=== PATIENT | male | born 1950 | race Caucasian/White ===

== ENCOUNTER → 2017-08-25 | Outpatient (CLI) | payer BC ==
[2017-08-25 14:53] LABS: HCT 41.2 % (39.0-53.0); HGB 14.1 gm/dL (13.0-17.5); MCH 33.3 pg (25.0-35.0); MCHC 34.1 g/dL (31.0-37.0); MCV 97.6 fL (80.0-100.0); Mean Platelet Volume 8.4; Platelet Count 183 k/uL (150-450); RBC 4.22 m/uL (4.30-5.90); RDW 13.1 % (11.5-15.5); WBC 9.5 k/uL (3.8-10.6)
[2017-08-25 15:04] LABS: Anion Gap 13 mmol/L; Blood Urea Nitrogen 15 mg/dL (9-20); Carbon Dioxide 25 mmol/L (22-30); Chloride 106 mmol/L (98-107); Potassium 4.7 mmol/L (3.5-5.1); Sodium 144 mmol/L (137-145)
== END | disposition home or self-care (01) ==
LOC: LABPAT 14:27
PROVIDERS: ATTEND Internal Medicine Interventional Cardiology
DX: Z01.812 Encounter for preprocedural laboratory examination (principal); I42.0 Dilated cardiomyopathy
CPT/HCPCS: 36415; 80051; 82565; 84520; 85027

== ENCOUNTER 2017-09-02 09:17 | Day surgery (SDC) | payer BC ==
[2017-08-28 09:09] VITALS: BMI 31.4
[~2017-09-02 09:17] MED LIST: ALPRAZolam 0.25 MG TAB PO PRN; ALPRAZolam 0.5 MG TAB PO PRN; ASPIRIN 325 MG TAB PO STA; ATORVASTATIN 80 MG TAB PO STA; NITROGLYCERIN SL TABS 0.4 MG TAB SUBLINGUAL PRN; SODIUM CHLORIDE 0.9% 1,000 ML in EMPTY BAG 1 BAG IV ONE
[2017-09-02 09:44] LABS: Glucose,Whole Blood 259 mg/dL (75-99)
[2017-09-02] MEDS ORDERED: INSULIN ASPART 100 UNIT/ML 1 ML 10 ML VIAL SQ SCH (09:45)
[2017-09-02 09:49] VITALS: RESP 16; TEMP 98.3
[2017-09-02] MEDS ORDERED: VERAPAMIL 2.5 MG/ML 2 ML AMP ONE (11:24)
[2017-09-02] MEDS ORDERED: MIDAZOLAM 2 MG/2 ML VIAL ONE (11:24)
[2017-09-02] MEDS ORDERED: diphenhydrAMINE 50 MG/ML 1 ML VIAL ONE (11:30)
[2017-09-02] MEDS ORDERED: diphenhydrAMINE 50 MG/ML 1 ML VIAL IVP ONE (11:39)
[2017-09-02] MEDS ORDERED: MIDAZOLAM 2 MG/2 ML VIAL IVP ONE ×2 (11:39)
[2017-09-02] MEDS ORDERED: LIDOCAINE 2% INJ 20 MG/ML SQ ONE ×2 (11:40→11:50)
[2017-09-02] MEDS: VERAPAMIL SYRINGE (5 MG/10 ML) INTRAARTER ONE ×2 (11:43→12:08)
[2017-09-02] MEDS ORDERED: HEPARIN SODIUM 1,000 UN/ML (10ML VL) IV ONE (11:44)
[2017-09-02] MEDS ORDERED: IOHEXOL 350 MG/ML (PER ML) 100ML BTL INJ ONE (12:07)
[2017-09-02 12:45] LABS: Glucose,Whole Blood 169 mg/dL (75-99)
--- NOTE | 2017-09-02 12:52 | CC ---
CARDIAC CATHETERIZATION REPORT DATE OF SERVICE: 09/02/2017. PROCEDURE: Left heart catheterization and coronary angiography. PERFORMED BY: Dr. Niecy Wright. Moderate conscious sedation time 31 minutes with a combination of Benadryl and Versed. Patient's oxygen saturation was monitored closely as well as his vital signs and rhythm. CLINICAL INFORMATION: Mr. Sukhjinder Ward is a 66-year-old gentleman with a history of nonischemic cardiomyopathy, who also has developed type 2 diabetes, hypertension, hyperlipidemia, had a recent stress test that revealed apical ischemia, also adjoining inferior wall as well. In view of abnormal stress test, diabetes, and significant risk factors, he was advised coronary angiography. Risks, benefits, options were discussed with the patient and . They understood all details and wished to proceed. PROCEDURE NOTE: Under local anesthesia and strict aseptic precautions, a 6-Indonesian introducer was placed in the right radial artery. Because of extreme tortuosity and bovine arch, I was unable to get access into the ascending aorta. I therefore switched over to the femoral approach. Again, using a standard aseptic precautions and local anesthesia, a 6-Indonesian introducer was placed. Standard Earl catheters were used to perform coronary angiography and a right coronary catheter was used to check the pressures. LV gram was not performed. The sheath was taken out and Angio-Seal device used to secure hemostasis. Patient had a TR band placed on the right radial cath site and the saturation in the fingers of the right hand was good. Good hemostasis was secured. CARDIAC CATHETERIZATION FINDINGS: The left ventricle end-diastolic pressure was 14 to 15 mmHg without any gradient across the aortic valve. CORONARY ANGIOGRAPHY FINDINGS: 1. RIGHT CORONARY ARTERY: Technically a codominant vessel which has minor irregularities, no significant disease. Distally gives off a large PDA branch and a small PLV. There is no significant disease in the codominant RCA. 2. LEFT MAIN CORONARY ARTERY: It is a short patent, disease-free vessel that bifurcates into LAD and circumflex. There is mild calcification noted. 3. LEFT ANTERIOR DESCENDING CORONARY ARTERY: There is significant calcification in this vessel, in the proximal as well as in the midportion. It gives off two diagonal branches and there is a third small diagonal branch. After this, there is an eccentric area of about 70% to 75% stenosis with heavy calcification. In the midportion, there is another area of 70% stenosis with heavy calcification. The vessel then runs all the way to the apex to supply the inferoapical portion of the left ventricle. The caliber of the vessel decreases in the distal half, but there are two focal areas of 70% with heavy calcification that are significant. The diagonal branches are free of significant disease. 4. LEFT POSTERIOR CIRCUMFLEX CORONARY ARTERY: Technically this is a codominant vessel, gives off a small obtuse marginal proximally, a groove branch and then continues as a posterolateral branch. The mid circumflex has about a 40% narrowing. There is: however, no critical stenosis in the circumflex system. 5. The first obtuse marginal is free of significant disease and a groove branch has minor irregularities in mid circumflex after the small second obtuse marginal has about a 40% narrowing. The PLV is free of significant disease and supplies a fair amount of myocardium. 6. Left ventriculogram was not performed. FINAL IMPRESSION: This patient has a heavily calcified left anterior descending artery in the proximal portion as well as two focal areas in the mid left anterior descending artery are about 70% to 75% with heavy calcification. Circumflex has a 40% mid lesion and is a codominant vessel. Right coronary artery is a codominant, disease-free vessel. Filling pressures are mildly elevated. There was no gradient across the aortic valve. RECOMMENDATION: I am recommending elective intervention of the LAD with orbital atherectomy and stenting. Patient's ejection fraction is about 40% to 45%. He has a history of nonischemic cardiomyopathy. Findings were discussed with the patient and . He will be sent home today. I will see him in the office and perform elective intervention. RATIONALE: Patient tolerated procedure well without complications. MMODL / IJN: [id number] /
[2017-09-02] MEDS ORDERED: RX INFO: IV CONTRAST WAS GIVEN 1 EACH MISC MISCELLANE PRN (12:54)
[2017-09-02] MEDS ORDERED: SODIUM CHLORIDE 0.9% 1,000 ML IV SCH (13:00)
[2017-09-02 16:39] VITALS: PULSE 62
[2017-09-02 18:27] VITALS: BP 162/83
== END 2017-09-02 18:59 | disposition home or self-care (01) ==
LOC: CATHCVL 09:17
PROVIDERS: ATTEND Internal Medicine Interventional Cardiology
DX: I25.110 Atherosclerotic heart disease of native coronary artery with unstable angina pectoris (principal); I25.84 Coronary atherosclerosis due to calcified coronary lesion; I10 Essential (primary) hypertension; E78.00 Pure hypercholesterolemia, unspecified; I65.22 Occlusion and stenosis of left carotid artery; E78.5 Hyperlipidemia, unspecified; E11.9 Type 2 diabetes mellitus without complications; Z79.84 Long term (current) use of oral hypoglycemic drugs; Z79.82 Long term (current) use of aspirin; Z79.899 Other long term (current) drug therapy
CPT/HCPCS: 93458; C1760; C1769 ×4; C1894 ×2; J2001; J2250; J1200; Q9967; J1644

== ENCOUNTER → 2017-09-10 | Outpatient (CLI) | payer BC ==
[2017-09-10 15:00] LABS: HCT 39.4 % (39.0-53.0); HGB 13.8 gm/dL (13.0-17.5); MCH 33.4 pg (25.0-35.0); MCHC 35.2 g/dL (31.0-37.0); MCV 94.9 fL (80.0-100.0); Mean Platelet Volume 8.2; Platelet Count 199 k/uL (150-450); RBC 4.15 m/uL (4.30-5.90); RDW 13.2 % (11.5-15.5); WBC 9.7 k/uL (3.8-10.6)
[2017-09-10 15:17] LABS: Anion Gap 14 mmol/L; Blood Urea Nitrogen 17 mg/dL (9-20); Carbon Dioxide 25 mmol/L (22-30); Chloride 102 mmol/L (98-107); Potassium 4.6 mmol/L (3.5-5.1); Sodium 141 mmol/L (137-145)
== END ==
LOC: LABPAT 13:43
PROVIDERS: ATTEND Internal Medicine Interventional Cardiology
DX: Z01.812 Encounter for preprocedural laboratory examination (principal); I25.10 Atherosclerotic heart disease of native coronary artery without angina pectoris
CPT/HCPCS: 36415; 80051; 82565; 84520; 85027

== ENCOUNTER 2017-09-14 05:53 | Inpatient (IN) | payer BC ==
[2017-09-14] MEDS ORDERED: INSULIN ASPART 100 UNIT/ML 1 ML 10 ML VIAL SQ ONE ×2 (06:34→14:12)
[2017-09-14 06:43] LABS: Glucose,Whole Blood 206 mg/dL (75-99)
[2017-09-14] MEDS ORDERED: DEXTROSE 5%-0.9% NACL 1,000 ML IV SCH (07:15)
[2017-09-14] MEDS: MIDAZOLAM 2 MG/2 ML VIAL IV ONE ×2 (07:31→07:50)
[2017-09-14] MEDS ORDERED: diphenhydrAMINE 50 MG/ML 1 ML VIAL IVP ONE (07:31)
[2017-09-14] MEDS ORDERED: LIDOCAINE 2% INJ 20 MG/ML SQ ONE (07:37)
[2017-09-14] MEDS ORDERED: SODIUM CHLORIDE 0.9% 1,000 ML IV ONE (07:41)
[2017-09-14] MEDS ORDERED: HEPARIN SODIUM 1,000 UN/ML (10ML VL) IV ONE ×2 (08:11→08:45)
[2017-09-14] MEDS ORDERED: fentaNYL (PF) 50 MCG/ML 2 ML AMP IV ONE (08:21)
[2017-09-14] MEDS ORDERED: TICAGRELOR 90 MG TAB PO ONE (08:26)
[2017-09-14] MEDS ORDERED: NITROGLYCERIN 1000MCG/10ML SYRINGE INTRACORON ONE (09:00)
[2017-09-14] MEDS ORDERED: MORPHINE SULFATE 4 MG/ML SYRINGE IV ONE (09:16)
[2017-09-14] MEDS ORDERED: IOHEXOL 350 MG/ML (PER ML) 100ML BTL INJ ONE (09:29)
[2017-09-14] MEDS ORDERED: ATROPINE SULFATE 0.1 MG/ML 10ML SYRINGE IV PRN (09:41)
[2017-09-14] MEDS ORDERED: RX INFO: IV CONTRAST WAS GIVEN 1 EACH MISC MISCELLANE PRN (09:41)
[2017-09-14] MEDS ORDERED: MAG HYDROX/AL HYDROX/SIMETH 30 ML CUP PO PRN (09:41)
[2017-09-14] MEDS ORDERED: ZOLPIDEM 5 MG TAB PO PRN (09:41)
[2017-09-14] MEDS ORDERED: NITROGLYCERIN SL TABS 0.4 MG TAB SUBLINGUAL PRN (09:41)
[2017-09-14] MEDS ORDERED: SODIUM CHLORIDE 0.9% 1,000 ML IV SCH (09:45)
[2017-09-14 13:49] LABS: Glucose,Whole Blood 276 mg/dL (75-99)
[2017-09-14] MEDS: INSULIN ASPART 100 UNIT/ML 1 ML 10 ML VIAL SQ SCH ×2 (17:28→21:33)
[2017-09-14 17:30] LABS: Glucose,Whole Blood 253 mg/dL (75-99)
[2017-09-14 17:30] LABS: Glucose,Whole Blood 296 mg/dL (75-99)
[2017-09-14] MEDS ORDERED: amLODIPine 5 MG TAB PO SCH (21:00)
[2017-09-14 21:04] LABS: Glucose,Whole Blood 251 mg/dL (75-99)
[2017-09-14] MEDS: GLIMEPIRIDE 2 MG TAB PO SCH (21:29)
[2017-09-14] MEDS: CARVEDILOL 12.5 MG TAB PO SCH (21:30)
[2017-09-14] MEDS: LISINOPRIL 20 MG TAB PO SCH (21:33)
[2017-09-14 22:12] LABS: Anion Gap 8 mmol/L; Blood Urea Nitrogen 19 mg/dL (9-20); Calcium 8.8 mg/dL (8.4-10.2); Carbon Dioxide 25 mmol/L (22-30); Chloride 106 mmol/L (98-107); Glucose 213 mg/dL (74-99); Potassium 4.7 mmol/L (3.5-5.1); Sodium 139 mmol/L (137-145)
--- NOTE | 2017-09-15 00:02 | CC ---
HIGH RISK PROTECTED MULTIVESSEL PCI WITH IMPELLA HEART PUMP. DATE OF SERVICE: 09/14/2017. PROCEDURE: 1. Right heart catheterization and monitoring during PCI. 2. Impella Heart Pump percutaneous mechanical circulatory support device insertion. 3. Protected PCI in a patient with a depressed left ventricular ejection fraction with orbital atherectomy and stenting of proximal and mid LAD and Stenting of mid circumflex coronary arteries. PERFORMED BY: Dr. Niecy Wright. REPAIRER AUTO CLOCKS: Dr. Myla Lopez, schulte for the Impella heart pump device. MODERATE CONSCIOUS SEDATION TIME: 110 minutes.Sedation with Versed and Fentanyl. CLINICAL INFORMATION: Mr. Sukhjinder Ward is a 66-year-old gentleman with a known history of decreased LV function with ejection fraction in the range of 40% with severe calcified coronary arteries, type 2 diabetes mellitus, hypertension and hypercholesterolemia. This gentleman underwent a cardiac catheterization that was performed by me about 10 days ago. Cardiac cath revealed severe disease involving the LAD, which was a very large distribution, heavily calcified vessel. During my evaluation in the office, I suggested that I would perhaps do intervention of the LAD only, but after reviewing the angiograms, I noted that the disease in mid circumflex was also quite significant and I advised intervention of both vessels. Since there was a significant amount of myocardium being supplied by this, and because of the patient's known LV dysfunction and significant comorbidities including type 2 diabetes and pulmonary disease, I advised a protected PCI using the Impella heart pump device. After an extensive discussion with the patient, his and daughter, the procedure was scheduled electively for 09/14/2017. The schulte, Dr. Myla Lpoez, was also present during the procedure and assisted me as well. PROCEDURE DETAILS: Under strict aseptic precautions and local anesthesia, a 6-[place]se introducer was placed in the right femoral artery using a micropuncture needle technique. The patient was adequately sedated. Another access was also obtained in the right femoral venous site, with an 8-[place] introducer for the placement of a right heart catheter. Balloon tipped Rt heart cath was placed in Pul artery and all pressures were obtained. PA pressures were monitored closely during the procedure. Under fluoroscopic guidance with a pulse angiography with hand injections, I then obtained access in the left femoral artery using a micropuncture needle technique with strict aseptic precautions and local anesthesia. A 6 FR sheath was placed. From RT fem sheath, I advanced an SAVITA catheter over a guidewire and this catheter was advanced over and above and came down into the left iliac. With injections in the left common iliac, under fluoroscopic guidance, a micropuncture needle was used to gain access into the left femoral artery. On the left side, a 6-[place]se introducer was placed and subsequently an 8-[place] dilator was also used. A supracore wire was advanced thru left sheath into the Aorta. At this stage, after using an 8-[place] dilator, I then advanced and placed a Perclose device. The suture was deployed in a 10 o'clock position. Another Perclose device was used and this time the sutures were deployed at the 2 o' clock position. To gain access into the left femoral artery, a Supra Core soft tipped wire, which was a Stiff wire, was used. With this wire, in the descending thoracic aorta, the 14-[place]se introducer was advanced and positioned. Subsequently a right Earl type diagnostic catheter was used over the same Supra Core wire and I gained access into the left ventricle and kept the wire within the left ventricle. The right Earl catheter was then exchanged after advancing a 0.018 Impella wire. This Impella wire was kept in the left ventricle apex with a very good coil. The right Earl catheter was then exchanged. I then advanced the Impella device which was backloaded onto the 0.018 wire and this Impella device was positioned under fluoroscopic guidance appropriately with the tip in the left ventricle and the housing in the correct location. The Impella device was then started with automatic flow rates. After ensuring and that there was a very good signal and decent cardiac output of over 3 L, I then went ahead with the intervention procedure. From the right femoral approach, initially I used a EBU 3.75 catheter but did not get a good guide support. I switched over to a XB LAD 3.5. With this catheter, I was able to get good guide support. A run-through wire was used and this wire was kept distally and I used a FineCross catheter and exchanged the run- through wire for the Viper wire. I then advanced the orbital atherectomy device and I performed atherectomy of the entire proximal 1/3 of the LAD, which was heavily calcified. The orbital atherectomy device was then taken out. Using the same Viper wire, I advanced a long 28 mm 2.5 caliber NC Trek balloon. With this balloon, the mid lesion which was a tight lesion, was dilated up to 18 atmospheres with a decent result. The same wire was used to pre-dilate the entire proximal 1/3 of the LAD. I then deployed a 16 mm long PROMUS stent of 2.5 caliber in the mid LAD with excellent result. Proximal to this stent, I noted that there was a small flap and this was addressed with a 28 mm long 2.75 caliber Promus stent, which was deployed at 13 to 14 atmospheres. Finally, another additional 28 mm long 3.0 caliber Promus stent was used and this stent was placed at the site of haziness and this stent actually jailed the 2 diagonal branches without compromising any flow and the stent extended up to the proximal portion of the LAD just after it came off from the left main. All these 3 stents were then post dilated with the same balloon at high pressures. Excellent angiographic result was achieved. There were no complications with the LAD intervention. I then took the Viper wire out and advanced under fluoroscopic guidance the run-through wire and this wire was kept in the distal portion of the circumflex vessel. Without predilatation, a 16 mm long 3.0 caliber Promus drug-eluting stent was deployed in the mid circumflex with excellent angiographic result. The patient had chest pain and anterior ST elevation during inflations. He received 180 mg of Brilinta. He also received intravenous heparin and ACT was kept over 250 throughout the case with additional doses of heparin. The right femoral arterial 6-[place]se sheath as well as the right femoral venous sheath were both sutured. I then decrease the flow rate on the Impella and the Impella device was taken out under fluoroscopic guidance uneventfully. A Supra Core wire was advanced through the 14-[place] Impella sheath and the wire was kept in the descending aorta. From the right femoral approach, another SAVITA catheter with a coated Glidewire was used. This SAVITA catheter was advanced over to the left side and the wire was advanced gradually into the iliac artery and taken all the way down into the SFA. The catheter was then taken out and a sheath was advanced and the sheath was positioned in the left iliac artery. Through the sheath, a 9 x 40 balloon was advanced and positioned and the tip of the balloon was just above the Impella sheath. The wire went distally into the SFA next to the Impella sheath. The 9 x 40 balloon in the left iliac artery was then inflated to about 1 to 1.5 atmospheres until we saw the dampening of the pressure. At this stage, the 14-[place]se Impella sheath was taken out and both the pre close devices were used. The sutures were locked in and good hemostasis was secured. The Impella sheath was completely taken out and slowly the balloon in the left iliac artery was deflated. Hemostasis was ensured and there was no evidence of any bleeding. Excellent hemostasis was secured with 2 Perclose closure devices in the 2 o' clock and 10 o'clock positions. The right femoral 6-[place] sheath was a long one. This was taken out under fluoroscopic guidance and because of oozing, a 7-[place]se sheath was placed with good hemostasis. Both the venous and femoral arterial sheaths on the right versus side were sutured and patient was sent to the ICU in a stable condition. Excellent angiographic result was achieved of the LAD and circumflex. Three drug- eluting stents were deployed in the LAD and one drug-eluting stent in the circumflex. The patient tolerated the procedure well without any complication. Results were discussed with the patient and family in great detail. Moderate conscious sedation was provided throughout the case with a combination of Versed, fentanyl and also Benadryl. The schulte, Dr. Lopez, was present throughout the procedure and assisted me. MMNAYELIL / JOYN: [id number] / MTDD
[2017-09-15 04:34] LABS: Basophils # (A) 0.1 k/uL (0-0.2); Basophils % (A) 1 %; Eosinophils # (A) 0.2 k/uL (0-0.7); Eosinophils % (A) 1 %; HCT 33.1 % (39.0-53.0); Hyperchromasia Slight; Lymphocytes # (A) 2.1 k/uL (1.0-4.8); Lymphocytes % (A) 19 %; MCH 32.9 pg (25.0-35.0); MCHC 36.3 g/dL (31.0-37.0); MCV 90.8 fL (80.0-100.0); Mean Platelet Volume 8.5; Monocytes # (A) 0.8 k/uL (0-1.0); Monocytes % (A) 7 %; Neutrophils % (A) 71 %; Platelet Count 172 k/uL (150-450); RBC 3.64 m/uL (4.30-5.90); WBC 11.2 k/uL (3.8-10.6)
[2017-09-15 04:42] LABS: Anion Gap 8 mmol/L; Blood Urea Nitrogen 15 mg/dL (9-20); Calcium 8.7 mg/dL (8.4-10.2); Carbon Dioxide 25 mmol/L (22-30); Chloride 107 mmol/L (98-107); Glucose 175 mg/dL (74-99); Potassium 4.3 mmol/L (3.5-5.1); Sodium 140 mmol/L (137-145)
[2017-09-15 07:27] LABS: Glucose,Whole Blood 245 mg/dL (75-99)
[2017-09-15] MEDS ORDERED: INSULIN ASPART 100 UNIT/ML 1 ML 10 ML VIAL SQ ONE (08:04)
[2017-09-15] MEDS: LISINOPRIL 20 MG TAB PO SCH (08:21)
[2017-09-15] MEDS: CARVEDILOL 12.5 MG TAB PO SCH ×2 (08:21→18:19)
[2017-09-15] MEDS: GLIMEPIRIDE 2 MG TAB PO SCH ×2 (08:21→17:53)
[2017-09-15] MEDS: INSULIN ASPART 100 UNIT/ML 1 ML 10 ML VIAL SQ SCH ×3 (08:26→17:55)
[2017-09-15] MEDS ORDERED: TICAGRELOR 90 MG TAB PO SCH (09:00)
[2017-09-15] MEDS ORDERED: ASPIRIN 81 MG PO SCH (09:00)
--- NOTE | 2017-09-15 09:39 | DS ---
DISCHARGE SUMMARY Mr. Sukhjinder Ward was admitted by me yesterday electively for a high risk protected PCI with Impella heart pump. This procedure was performed yesterday morning uneventfully. He had stenting of the LAD performed in the proximal and middle 1/3 with 3 drug-eluting stents and also mid circumflex with another drug-eluting stent. He had Impella device placed from the left femoral approach and from the right side he had a 6-Emirati introducer for PCI and a 8-Emirati introducer for monitoring of his right heart. The patient tolerated the procedure well. Post procedure. this morning he is asymptomatic, sitting up. Has no symptoms of any chest pain. Has mild soreness in his right groin. Blood pressure is 130/60, pulse rate is 78 per minute. There is no JVD. S1, S2 heard normally. There is no significant murmur. Lungs are clear, abdomen is soft, nontender. Lower extremities reveal that bilateral groins have a small area of ecchymosis, but the pulse is good. Distal pulses are good. No edema. Central nervous system is normal. EKG revealed sinus mechanism with poor R-wave progression, which is similar to the baseline EKG. Laboratory data do not reveal any significant abnormalities. IMPRESSION: 1. Status post high-risk PCI with an Impella heart pump. 2. Type 2 diabetes. 3. Hypertension. 4. Hyperlipidemia. RECOMMENDATIONS: I am recommending that we will increase activity, move him to telemetry today and discharge him this evening if he remains stable after ambulation, and after he has had a meal. I will see him in the office next week. Discharge instructions regarding diet, activity and medications were given to both patient and . MMODL / IJN: [id number] /
[2017-09-15 10:07] VITALS: BMI 30.7
[2017-09-15 12:18] LABS: Glucose,Whole Blood 240 mg/dL (75-99)
[2017-09-15 16:49] VITALS: BP 143/75; PULSE 59; RESP 19; TEMP 98.2
[2017-09-15 17:08] LABS: Glucose,Whole Blood 227 mg/dL (75-99)
[2017-09-15] MEDS ORDERED: ATORVASTATIN 80 MG TAB PO SCH (21:00)
== END 2017-09-15 18:44 | disposition home or self-care (01) | DRG 215 ==
LOC: 2ORMAIN 05:53 → 6ICU 14:41
PROVIDERS: ADMIT Internal Medicine Interventional Cardiology; ATTEND Internal Medicine Interventional Cardiology
PROC: 027137Z Dilation of Coronary Artery, Two Arteries with Four or More Drug-eluting Intraluminal Devices, Percutaneous Approach (ICD-10-PCS; 2017-09-14)
PROC: 02HP32Z Insertion of Monitoring Device into Pulmonary Trunk, Percutaneous Approach (ICD-10-PCS; 2017-09-14)
PROC: 02HA3RJ Insertion of Short-term External Heart Assist System into Heart, Intraoperative, Percutaneous Approach (ICD-10-PCS; principal; 2017-09-14 07:14)
PROC: 5A0221D Assistance with Cardiac Output using Impeller Pump, Continuous (ICD-10-PCS; 2017-09-14 07:14)
PROC: X2C0361 Extirpation of Matter from Coronary Artery, One Artery using Orbital Atherectomy Technology, Percutaneous Approach, New Technology Group 1 (ICD-10-PCS; 2017-09-14 07:14)
DX: I25.10 Atherosclerotic heart disease of native coronary artery without angina pectoris (principal); I08.1 Rheumatic disorders of both mitral and tricuspid valves; I42.9 Cardiomyopathy, unspecified; I25.84 Coronary atherosclerosis due to calcified coronary lesion; I77.9 Disorder of arteries and arterioles, unspecified; E11.9 Type 2 diabetes mellitus without complications; E78.00 Pure hypercholesterolemia, unspecified; I10 Essential (primary) hypertension; E78.5 Hyperlipidemia, unspecified; Z79.84 Long term (current) use of oral hypoglycemic drugs; Z79.82 Long term (current) use of aspirin; Z79.899 Other long term (current) drug therapy
CPT/HCPCS: 80048; 83735; 85025; 93451

== ENCOUNTER → 2017-10-06 | Outpatient (CLI) | payer BC ==
[2017-10-06 09:22] LABS: HCT 38.4 % (39.0-53.0); HGB 12.8 gm/dL (13.0-17.5); MCH 31.5 pg (25.0-35.0); MCHC 33.3 g/dL (31.0-37.0); MCV 94.8 fL (80.0-100.0); Mean Platelet Volume 8.9; Platelet Count 172 k/uL (150-450); RBC 4.05 m/uL (4.30-5.90); RDW 13.2 % (11.5-15.5); WBC 8.5 k/uL (3.8-10.6)
[2017-10-06 09:44] LABS: Anion Gap 15 mmol/L; Blood Urea Nitrogen 17 mg/dL (9-20); Calcium 9.4 mg/dL (8.4-10.2); Carbon Dioxide 25 mmol/L (22-30); Chloride 105 mmol/L (98-107); Glucose 216 mg/dL (74-99); Potassium 4.6 mmol/L (3.5-5.1); Sodium 145 mmol/L (137-145)
== END | disposition home or self-care (01) ==
LOC: LABWHC1 08:46
PROVIDERS: ATTEND Internal Medicine Interventional Cardiology
DX: I25.10 Atherosclerotic heart disease of native coronary artery without angina pectoris (principal); E11.9 Type 2 diabetes mellitus without complications
CPT/HCPCS: 36415; 80048; 85027

== ENCOUNTER → 2018-01-12 | Outpatient (CLI) | payer BC, MEDICARE ==
--- NOTE | 2018-01-12 10:15 | US ---
EXAMINATION TYPE: US abdomen complete DATE OF EXAM: 01/12/2018 COMPARISON: NONE CLINICAL HISTORY: R74.8 ABN LEVELS OF OTHER SERUM ENZYMES. Elevated liver enzymes EXAM MEASUREMENTS: Liver Length: 15.1 cm Gallbladder Wall: 0.2 cm CBD: 0.4 cm Spleen: 11.7 cm Right Kidney: 9.9 x 5.2 x 5.3 cm Left Kidney: 9.9 x 5.5 x 5.4 cm Difficult and limited study due to large amount of overlying bowel gas Pancreas: obscured by overlying midline bowel gas Liver: scanned intercostally, visualized portions wnl, limited by rib shadowing Gallbladder: No cholelithiasis or biliary sludge Evidence for sonographic Wilson's sign: no CBD: visualized portion wnl, limited by overlying bowel gas Spleen: wnl Right Kidney: 2.8 x 2.1 x 2.1cm isoechoic area anterior mid pole concerning for mass. Further evalua tion with CT is recommended. Left Kidney: wnl Upper IVC: wnl Abd Aorta: visualized portions wnl, proximal portion obscured by overlying midline bowel gas The liver is homogenous. The intrahepatic portion of the IVC and proximal abdominal aorta are within normal limits. There is no evidence of cholelithiasis. Common bile duct is unremarkable. The sple en is unremarkable. Kidneys are symmetric and free of hydronephrosis. IMPRESSION: 1. 2.8 cm solid-appearing isoechoic right renal lesion concerning for neoplasm. Full characterization with three-phase dynamic enhanced CT is recommended. Alternatively this could represent a benign por tion of a column of Ayaan. 2. Hepatic echotexture is overall within normal limits despite elevated liver enzymes. No evidence of cholelithiasis or sonographic evidence of acute cholecystitis.
== END | disposition home or self-care (01) ==
LOC: RADUSWWP 06:47
PROVIDERS: ATTEND Family Medicine
DX: N28.89 Other specified disorders of kidney and ureter (principal); R74.8 Abnormal levels of other serum enzymes
CPT/HCPCS: 76700

== ENCOUNTER → 2018-01-14 | Outpatient (CLI) | payer MEDICARE ==
[2018-01-14 16:38] LABS: Blood Urea Nitrogen 21 mg/dL (9-20)
--- NOTE | 2018-01-14 21:57 | CT ---
EXAMINATION TYPE: CT abdomen wo/w con DATE OF EXAM: 01/14/2018 COMPARISON: Correlation ultrasound 01/12/2018 HISTORY: 67-year-old male abnormal US results, mass on kidney TECHNIQUE: Contiguous axial scanning of the abdomen before and after administration of 100 ml Isovue 300 IV contrast. Delayed images through the kidneys and coronal/sagittal reconstructions performed. CT DLP: 2527 mGycm Automated exposure control for dose reduction was used. FINDINGS: The heart is normal size with trace anterior basilar pericardial fluid. Coronary vessel calcification s are present in remarkable for coronary artery disease. There is a nonspecific 6 mm left basilar pulmonary nodule axial image 16 which warrants follow-up. Noncontrast series shows no evidence for fatty infiltration of the liver. No focal liver lesion or bi liary ductal dilatation. Portal venous system is patent. The gallbladder is borderline hydropic and 3.9 cm wide. Probably due to fasting state. No surrounding inflammatory change. Adrenal glands are within normal limits. Incidentally, the main pancreatic duct within the pancreatic neck and body is mildly dilated at 4 mm there is no focal pancreatic lesion. Spleen is upper limits of normal in size at 13.3 cm. Punctate 2 mm nonobstructive right upper pole renal calculus. Subcentimeter hypodensity upper pole left kidney too small for accurate PET characterization, likely tiny cysts. Symmetric uptake and excretion of contrast from both kidneys. Small cortical defects are present in t he upper poles of both kidneys suggesting prior vascular or infectious insults. No suspicious renal l esion is seen. Ultrasound findings suggest a column of Ayaan seen in the right kidney. Moderate atherosclerotic calcifications within the abdominal aorta. No dilated small bowel, free fluid, or free air. No mesenteric or retroperitoneal lymphadenopathy. There is mild overall stone burden without pericolonic inflammatory change. Bones: Degenerative bony ankylosis of the right greater than left SI joints. Facet arthropathy mid to lower lumbar spine with grade 1 retrolisthesis at L3-L4 and L4-L5. Bridging endplate spondylosis low er thoracic spine. IMPRESSION: 1. MULTIPHASIC CT CONFIRMS THAT THE QUESTIONED RIGHT KIDNEY FINDING ON ULTRASOUND CORRESPONDS TO A BE NIGN COLUMN OF AYAAN. NO SUSPICIOUS RENAL LESION. 2. PUNCTATE 2 MM RIGHT RENAL CALCULUS. SMALL CORTICAL DEFECTS IN THE UPPER POLE OF BOTH KIDNEYS SUGGE STING PRIOR VASCULAR OR INFECTIOUS INSULTS. 3. MILDLY DILATED MAIN PANCREATIC DUCT WITHIN THE PANCREATIC NECK AND BODY (4 MM). THIS COULD REPRESE NT SEQUELA OF PRIOR PANCREATITIS. A MAIN DUCT IPMN IS IN THE DIFFERENTIAL. SIX-MONTH FOLLOW-UP PANCR EAS MRI CAN REASSESS. 4. 6 MM LEFT BASILAR PULMONARY NODULE. A 6-12 MONTH FOLLOW-UP CT OF THE CHEST CAN REASSESS AND ALSO S URVEY THE ENTIRE LUNGS.
== END | disposition home or self-care (01) ==
LOC: LABWHC1 15:25
PROVIDERS: ATTEND Family Medicine
DX: N20.0 Calculus of kidney (principal); K86.89 Other specified diseases of pancreas; N28.89 Other specified disorders of kidney and ureter
CPT/HCPCS: 82565; 84520; 74170; 36415; Q9967

== ENCOUNTER → 2019-02-08 | Outpatient (CLI) | payer MEDICARE ==
--- NOTE | 2019-02-08 10:08 | CT ---
EXAMINATION TYPE: CT chest wo con DATE OF EXAM: 02/08/2019 COMPARISON: CT 01/14/2018 HISTORY: Lung nodule CT DLP: 362.8 mGycm. Automated Exposure Control for Dose Reduction was Utilized. TECHNIQUE: CT scan of the thorax is performed without IV contrast. FINDINGS: LUNGS: The lungs are stable, the basilar subpleural left pulmonary nodule is unchanged and shows smoo th margins. There is no pleural effusion or pneumothorax seen. The tracheobronchial tree is patent. MEDIASTINUM: Lack of IV contrast is noted to limit evaluation for mediastinal and especially hilar ad enopathy. There are no definitive greater than 1 cm hilar or mediastinal lymph nodes. There are exten sive coronary artery calcifications. No cardiomegaly or pericardial effusion is seen. OTHER: Punctate nonobstructive renal calcifications are again noted. IMPRESSION: Stable exam. Coronary artery disease. Stable pulmonary nodule. Nephrolithiasis.
== END | disposition home or self-care (01) ==
LOC: RADCTMAIN 09:34
PROVIDERS: ATTEND Family Medicine
DX: R91.1 Solitary pulmonary nodule (principal); I25.10 Atherosclerotic heart disease of native coronary artery without angina pectoris
CPT/HCPCS: 71250

== ENCOUNTER → 2019-04-01 | Outpatient (CLI) | payer MEDICARE ==
--- NOTE | 2019-04-02 12:59 | MR ---
EXAMINATION TYPE: MR MRCP DATE OF EXAM: 04/01/2019 COMPARISON: None HISTORY: Abn finding in previous image, CBD reassess Standard multiplanar, multisequence MRI departmental protocol Multiplanar, multisequence images of the biliary tree were acquired. Diffusion weighted imaging was p erformed. 3-D images were submitted for evaluation. FINDINGS: The examination is limited by patient motion. Gallbladder appears to be free of cholelithiasis. No ga llbladder wall thickening or pericholecystic fluid. Common bile duct as visualized appears to be of n ormal caliber. No definite filling defect appreciated. Atraumatic duct is dilated at 6.2 mm. No defin ite pancreatic head mass is seen with certainty. This may reflect sequela of chronic pancreatitis. No definite intraductal lesion is seen at this time. Renal cystic changes noted. Fatty liver. No space-occupying hepatic lesion. No inflammatory process o r free air. IMPRESSION: Pancreatic ductal dilatation noted of uncertain etiology. Correlate clinically. Dramatic
== END | disposition home or self-care (01) ==
LOC: RADMRIMAIN 07:23
PROVIDERS: ATTEND Internal Medicine Gastroenterology
DX: R93.5 Abnormal findings on diagnostic imaging of other abdominal regions, including retroperitoneum (principal)
CPT/HCPCS: 74181

== ENCOUNTER → 2021-03-25 | Outpatient (CLI) | payer MEDICARE ==
[2021-03-25 12:10] LABS: Microalbumin Creatinine Ratio <30 mg/g Creat (0-30); Urine Creatinine 48.1 mg/dL
[2021-03-25 12:26] LABS: African American GFR (CKD) 79.5 (60.0-200.0); Albumin 4.4 g/dL (3.80-4.90); Albumin/Globulin Ratio 2.32 (1.60-3.17); Anion Gap 8.7 mmol/L (4.00-12.00); BUN/Creat Ratio 26.36 Ratio (12.00-20.00); Carbon Dioxide 23.3 mmol/L (21.6-31.8); Chol/HDL Ratio 3.27; Globulin 1.9 g/dL (1.6-3.3); Non-African American GFR(CKD) 68.6 (60.0-200.0); Potassium 5.1 mmol/L (3.5-5.5); Total Bilirubin 0.8 mg/dL (0.2-1.2); Total Protein 6.3 g/dL (6.2-8.2)
[2021-03-25 14:15] LABS: Hemoglobin A1C 7.2 % (4.0-6.0)
== END | disposition home or self-care (01) ==
LOC: LABWHC1 07:10
PROVIDERS: ATTEND Internal Medicine Endocrinology, Diabetes & Metabolism
DX: E11.65 Type 2 diabetes mellitus with hyperglycemia (principal)
CPT/HCPCS: 36415; 80053; 80061; 82043; 82570; 83036; 84443

== ENCOUNTER → 2022-07-29 | Outpatient (CLI) | payer MEDICARE ==
[2022-07-29 19:37] LABS: African American GFR (CKD) 74.1 (60.0-200.0); Albumin 4.6 g/dL (3.8-4.9); Albumin/Globulin Ratio 2.6 (1.60-3.17); Anion Gap 14.1 mmol/L (10.00-18.00); BUN/Creat Ratio 20.95 Ratio (12.00-20.00); Blood Urea Nitrogen 24.3 mg/dL (9.0-27.0); Calcium 9.3 mg/dL (8.7-10.3); Carbon Dioxide 18.8 mmol/L (20.0-27.5); Globulin 1.8 g/dL (1.6-3.3); Non-African American GFR(CKD) 63.9 (60.0-200.0); Potassium 5.1 mmol/L (3.5-5.5); Total Protein 6.3 g/dL (6.2-8.2)
[2022-07-31 07:12] LABS: Urine Creatinine 70.4 mg/dL (39.0-259.0)
== END | disposition home or self-care (01) ==
LOC: LABWHC1 08:13
PROVIDERS: ATTEND Internal Medicine Endocrinology, Diabetes & Metabolism
DX: E11.65 Type 2 diabetes mellitus with hyperglycemia (principal)
CPT/HCPCS: 36415; 80053; 82043; 82570; 83036; 84443

== ENCOUNTER 2023-02-11 08:32 | Day surgery (SDC) | payer MEDICARE ==
[2023-02-04 11:09] VITALS: BMI 26.1
[~2023-02-11 08:32] MED LIST changes: -ALPRAZolam 0.25 MG TAB PO PRN; -ALPRAZolam 0.5 MG TAB PO PRN; -ASPIRIN 325 MG TAB PO STA; -ATORVASTATIN 80 MG TAB PO STA; +LACTATED RINGERS 1,000 ML IV SCH; +LIDOCAINE 1% (10MG/ML) FOR IV START INTRADERMA PRN; -NITROGLYCERIN SL TABS 0.4 MG TAB SUBLINGUAL PRN; -SODIUM CHLORIDE 0.9% 1,000 ML in EMPTY BAG 1 BAG IV ONE
[2023-02-11 09:17] VITALS: RESP 16; TEMP 97.7
[2023-02-11 09:19] LABS: Glucose,Whole Blood 87 mg/dL (70-110)
[2023-02-11] MEDS ORDERED: PROPOFOL 10 MG/ML 20 ML VIAL IV ONE (09:33)
--- NOTE | 2023-02-11 09:44 | P.PCN ---
Date of Procedure: 02/11/23 Procedure(s) Performed: BRIEF HISTORY: Patient is a 72-year-old pleasant white male scheduled for an elective colonoscopy as a part of screening for colon cancer. PROCEDURE PERFORMED: Colonoscopy. PREOPERATIVE DIAGNOSIS: Screening for colon cancer. IV sedation per Anesthesia. PROCEDURE: After informed consent was obtained, the patient, was brought into the endoscopy unit. IV sedation was administered by Anesthesia under continuous monitoring. Digital rectal examination was normal. Initially the Olympus CF-160 flexible video colonoscope was then inserted in the rectum, gradually advanced into the cecum without any difficulty. Careful examination was performed as the scope was gradually being withdrawn. Ileocecal valve and the appendiceal orifice were visualized and appeared normal. Prep was excellent. Mucosa of the cecum, ascending colon, transverse colon, descending colon, sigmoid colon, and rectum appeared normal. Scattered sigmoid diverticula Retroflexion was performed in the rectum and weight 2 internal hemorrhoids were seen. The patient tolerated the procedure well. IMPRESSION: Normal-appearing colon from rectum to cecum with no evidence of colorectal neoplasia. Scattered sigmoid diverticular disease and small internal hemorrhoids RECOMMENDATIONS: Findings of this examination were discussed with the patient as well as his family. He was advised to repeat screening colonoscopy in 10 years.
[2023-02-11 09:50] VITALS: BP 128/77
[2023-02-11 10:05] VITALS: PULSE 70
== END 2023-02-11 10:24 | disposition home or self-care (01) ==
LOC: ORWHC2ENDO 08:32
PROVIDERS: ATTEND Internal Medicine Gastroenterology
DX: Z12.11 Encounter for screening for malignant neoplasm of colon (principal); K64.1 Second degree hemorrhoids; I10 Essential (primary) hypertension; E78.5 Hyperlipidemia, unspecified; I25.10 Atherosclerotic heart disease of native coronary artery without angina pectoris; Z79.899 Other long term (current) drug therapy
CPT/HCPCS: J2704; G0121

== ENCOUNTER → 2023-08-28 | Outpatient (CLI) | payer MEDICARE ==
[2023-08-28 16:02] LABS: ALT 26 U/L (10-49); AST 18 U/L (14-35); Albumin 4.1 g/dL (3.8-4.9); Albumin/Globulin Ratio 2.28 Ratio (1.60-3.17); Alkaline Phosphatase 90 U/L (41-126); Blood Urea Nitrogen 16.9 mg/dL (9.0-27.0); Calcium 8.6 mg/dL (8.7-10.3); Carbon Dioxide 24.7 mmol/L (21.6-31.8); Chloride 107 mmol/L (96-109); Globulin 1.8 g/dL (1.6-3.3); Glucose 105 mg/dL (70-110); Potassium 4.3 mmol/L (3.5-5.5); Sodium 143 mmol/L (135-145); Total Bilirubin 0.8 mg/dL (0.3-1.2); Total Protein 5.9 g/dL (6.2-8.2)
[2023-08-28 20:08] LABS: C-Peptide 1.66 ng/mL (0.81-3.85)
== END | disposition home or self-care (01) ==
LOC: LABWHC1 08:18
PROVIDERS: ATTEND Internal Medicine Endocrinology, Diabetes & Metabolism
DX: E11.65 Type 2 diabetes mellitus with hyperglycemia (principal)
CPT/HCPCS: 36415; 80053; 83519; 84681

== ENCOUNTER → 2023-09-12 | Outpatient (CLI) | payer MEDICARE ==
[2023-09-12 13:22] LABS: Basophils # (A) 0.07 X 10*3/uL (0.00-0.10); Basophils % (A) 1.1 %; Eosinophils # (A) 0.19 X 10*3/uL (0.04-0.35); HCT 38.3 % (39.6-50.0); HGB 12.8 g/dL (13.0-17.0); Lymphocytes # (A) 1.85 X 10*3/uL (0.90-5.00); MCHC 33.4 g/dL (32.0-37.0); MCV 101.9 FL (80.0-97.0); Mean Platelet Volume 11.3 FL (9.5-12.2); Monocytes # (A) 0.68 X 10*3/uL (0.20-1.00); Monocytes % (A) 10.7 %; NRBC Per 100 WBC 0 X 10*3/uL (0.00-0.01); Neutrophils # (A) 3.52 X 10*3/uL (1.80-7.70); Neutrophils % (A) 55.1 %; Platelet Count 173 X 10*3/uL (140-440); RBC 3.76 X 10*6/uL (4.40-5.60); RDW 14.6 % (11.5-14.5); WBC 6.38 X 10*3/uL (4.50-10.00)
[2023-09-12 13:37] LABS: ALT 27 U/L (10-49); AST 16 U/L (14-35); Albumin 4.2 g/dL (3.8-4.9); Albumin/Globulin Ratio 2.21 Ratio (1.60-3.17); Alkaline Phosphatase 88 U/L (41-126); Blood Urea Nitrogen 20.9 mg/dL (9.0-27.0); Calcium 9.1 mg/dL (8.7-10.3); Carbon Dioxide 22.6 mmol/L (21.6-31.8); Chloride 109 mmol/L (96-109); Globulin 1.9 g/dL (1.6-3.3); Glucose 315 mg/dL (70-110); LDL Cholesterol,Calculated 50.9 mg/dL (0.0-131.0); Potassium 4.8 mmol/L (3.5-5.5); Prostate Specific Antigen 1.37 ng/mL (0.000-6.500); Sodium 142 mmol/L (135-145); Total Bilirubin 0.7 mg/dL (0.3-1.2); Total Protein 6.1 g/dL (6.2-8.2); VLDL Calculation 11.84 mg/dL (5.00-40.00)
== END | disposition home or self-care (01) ==
LOC: LABWHC1 08:59
PROVIDERS: ATTEND Family Medicine
DX: Z00.00 Encounter for general adult medical examination without abnormal findings (principal)
CPT/HCPCS: 36415; 80053; 80061; 84153; 85025

== ENCOUNTER → 2023-11-09 | Outpatient (CLI) | payer MEDICARE ==
[2023-11-09 15:17] LABS: ALT 31 U/L (10-49); AST 22 U/L (14-35); Albumin 4.2 g/dL (3.8-4.9); Albumin/Globulin Ratio 2.33 Ratio (1.60-3.17); Alkaline Phosphatase 91 U/L (41-126); Blood Urea Nitrogen 20.6 mg/dL (9.0-27.0); Calcium 9.4 mg/dL (8.7-10.3); Carbon Dioxide 20.8 mmol/L (21.6-31.8); Chloride 111 mmol/L (96-109); Chol/HDL Ratio 2.29 Ratio; Globulin 1.8 g/dL (1.6-3.3); Glucose 181 mg/dL (70-110); LDL Cholesterol,Calculated 55.1 mg/dL (0.0-131.0); Potassium 4.5 mmol/L (3.5-5.5); Sodium 143 mmol/L (135-145); Total Bilirubin 0.7 mg/dL (0.3-1.2); VLDL Calculation 15.94 mg/dL (5.00-40.00)
[2023-11-09 19:42] LABS: Microalbumin Creatinine Ratio <33 mg/g Cr (0-30); Urine Creatinine 36.5 mg/dL (39.0-259.0)
== END | disposition home or self-care (01) ==
LOC: LABWHC1 09:13
PROVIDERS: ATTEND Internal Medicine Endocrinology, Diabetes & Metabolism
DX: E11.65 Type 2 diabetes mellitus with hyperglycemia (principal)
CPT/HCPCS: 36415; 80053; 80061; 82043; 82570; 83036; 84443

== ENCOUNTER → 2024-03-08 | Outpatient (CLI) | payer MEDICARE ==
[2024-03-08 19:17] LABS: Microalbumin Creatinine Ratio <25 mg/g Cr (0-30); Urine Creatinine 47.7 mg/dL (39.0-259.0)
[2024-03-08 19:39] LABS: ALT 31 U/L (10-49); AST 19 U/L (14-35); Albumin 4.3 g/dL (3.8-4.9); Albumin/Globulin Ratio 2.53 Ratio (1.60-3.17); Alkaline Phosphatase 99 U/L (41-126); BUN/Creat Ratio 25.42 Ratio (12.00-20.00); Blood Urea Nitrogen 30.5 mg/dL (9.0-27.0); Calcium 9.2 mg/dL (8.7-10.3); Carbon Dioxide 18.8 mmol/L (21.6-31.8); Chloride 113 mmol/L (96-109); Chol/HDL Ratio 2.19 Ratio; Globulin 1.7 g/dL (1.6-3.3); Glucose 198 mg/dL (70-110); LDL Cholesterol,Calculated 46.8 mg/dL (0.0-131.0); Potassium 4.7 mmol/L (3.5-5.5); Sodium 144 mmol/L (135-145); Total Bilirubin 0.9 mg/dL (0.3-1.2)
[2024-03-08 19:41] LABS: C-Peptide 1.81 ng/mL (0.81-3.85)
== END | disposition home or self-care (01) ==
LOC: LABWHC1 09:44
PROVIDERS: ATTEND Internal Medicine Endocrinology, Diabetes & Metabolism
DX: E11.65 Type 2 diabetes mellitus with hyperglycemia (principal)
CPT/HCPCS: 36415; 80053; 80061; 82043; 82570; 83036; 84443; 84681